=== PATIENT | female | born 1985 | race Caucasian/White ===

== ENCOUNTER 2022-03-03 04:02 | Emergency (ER) | payer BC ==
[2022-03-03] MEDS ORDERED: CLEOCIN 150 MG CAPSULE PO ONE (04:28)
--- NOTE | 2022-03-03 04:28 | ERPHSYRPT ---
- History of Present Illness Time Seen by Provider: 03/03/22 04:22 Source: patient Exam Limitations: no limitations Patient Subjective Stated Complaint: pt states "My widsom tooth broke the other day while I was eating and I have been having intense pain. I have been rotating tylenol and motrin and nothing is helping. The dentist cannot see me until saturday." Triage Nursing Assessment: Pt c/o L Lower tooth pain d/t widom tooth on L lower side breaking 2 days ago. Broken wisdom tooth noted on L lower side, no signs of drainage noted at this time. pt denies fever and is currently afebrile, pt is unable to sleep d/t pain from tooth Timing/Duration: gradual onset Severity: moderate ENT Location: dental Prearrival Treatment: over the counter meds Modifying Factors: Improves With: nothing Associated Symptoms: denies symptoms Allergies/Adverse Reactions: azithromycin Allergy (Verified 03/03/22 04:09) cephalexin [From Keflex] Allergy (Verified 03/03/22 04:09) nitrofurantoin [From Macrobid] Allergy (Verified 03/03/22 04:09) Sulfa (Sulfonamide Antibiotics) Allergy (Verified 03/03/22 04:09) sulfamethoxazole [From Bactrim] Allergy (Verified 03/03/22 04:09) trimethoprim [From Bactrim] Allergy (Verified 03/03/22 04:09) Hx Tetanus, Diphtheria Vaccination/Date Given: No Hx Influenza Vaccination/Date Given: Yes Hx Pneumococcal Vaccination/Date Given: No Immunizations Up to Date: Yes Travel Risk - International Travel Have you traveled outside of the country in past 3 weeks: No - Coronavirus Screening Are you exhibiting any of the following symptoms?: No Close contact with a COVID-19 positive Pt in past 14-21 Days: No - Vaccine Status Have you recieved a Covid-19 vaccination: Yes [employer] 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 [employer] - Review of Systems Constitutional: No Symptoms Eyes: No Symptoms Ears, Nose, & Throat: No Symptoms Respiratory: No Symptoms Cardiac: No Symptoms Abdominal/Gastrointestinal: No Symptoms Genitourinary Symptoms: No Symptoms Musculoskeletal: No Symptoms Skin: No Symptoms Neurological: No Symptoms Psychological: No Symptoms Endocrine: No Symptoms Hematologic/Lymphatic: No Symptoms Immunological/Allergic: No Symptoms All Other Systems: Reviewed and Negative - Past Medical History Pertinent Past Medical History: No Neurological History: No Pertinent History ENT History: No Pertinent History Cardiac History: No Pertinent History Respiratory History: No Pertinent History Endocrine Medical History: No Pertinent History Musculoskeletal History: No Pertinent History GI Medical History: No Pertinent History History: No Pertinent History Psycho-Social History: No Pertinent History Female Reproductive Disorders: No Pertinent History - Past Surgical History Past Surgical History: Yes Neuro Surgical History: No Pertinent History Cardiac: No Pertinent History Respiratory: No Pertinent History Gastrointestinal: Cholecystectomy Genitourinary: No Pertinent History Musculoskeletal: No Pertinent History Female Surgical History: Section - Social History Smoking Status: Never smoker Exposure to second hand smoke: No Drug Use: none Patient Lives Alone: No - Female History Hx Last Menstrual Period: 02/14/2022 Hx Now: No - Nursing Vital Signs Nursing Vital Signs: Initial Vital Signs Temperature 96.9 F 03/03/22 04:10 Pulse Rate 75 03/03/22 04:10 Respiratory Rate 18 03/03/22 04:10 Blood Pressure 117/83 03/03/22 04:10 O2 Sat by Pulse Oximetry 100 03/03/22 04:10 Pain Scale Pain Intensity 8 - Physical Exam General Appearance: mild distress Eye Exam: bilateral eye: normal inspection Ear Exam: bilateral ear: TM normal Nasal Exam: normal inspection Throat Exam: normal (molar tooth small fx, maybe early abscess) Neck Exam: normal inspection Cardiovascular/Respiratory Exam: chest non-tender, normal breath sounds Abdominal Exam: non-tender Neurologic Exam: alert, oriented x 3 Skin Exam: normal color SpO2 Interpretation: normal SpO2: 100 O2 Delivery: Room Air - Course Nursing assessment & vital signs reviewed: Yes Ordered Tests: Medication Summary Discontinued Medications Generic Name Dose Route Start Last Admin Trade Name Gail PRN Reason Stop Dose Admin Hydrocodone Bitart/Acetaminophen 1 tab 03/03/22 04:29 03/03/22 04:33 Hydrocodone/Apap 5/325 Mg Tablet PO 03/03/22 04:30 1 tab STAT ONE Administration Hydrocodone Bitart/Acetaminophen Confirm 03/03/22 04:33 Hydrocodone/Apap 5/325 Mg Tablet Administered 03/03/22 04:34 Dose 1 tab .ROUTE .STK-MED ONE Clindamycin HCl 150 mg 03/03/22 04:28 03/03/22 04:34 Clindamycin Hcl 150 Mg Capsule PO 03/03/22 04:29 150 mg STAT ONE Administration Clindamycin HCl Confirm 03/03/22 04:33 Clindamycin Hcl 150 Mg Capsule Administered 03/03/22 04:34 Dose 150 mg .ROUTE .STK-MED ONE - Progress Progress: improved Progress Note: 03/03/22 06:46 wisdom tooth, small fx, maybe early abscess, rx cleocin, few norco, see dds Counseled pt/family regarding: diagnosis, need for follow-up - Departure Departure Disposition: Home Clinical Impression: Dental abscess Condition: Stable Critical Care Time: No Referrals: THANIA GONZALEZ MD [Primary Care Provider] - Follow up/PCP as directed Instructions: Tooth Abscess (DC) Additional Instructions: OTC med as helpful pending dental appt. Prescriptions: Hydrocodone/Acetaminophen [Hydrocodone-Acetamin 5-325 mg] 1 tab PO Q6HPRN PRN #10 tablet MDD 4 PRN Reason: Pain clindamycin HCL [Cleocin HCl] 150 mg PO TID #30
[2022-03-03] MEDS ORDERED: NORCO 5/325 MG PO ONE (04:29)
[2022-03-03] MEDS ORDERED: CLEOCIN 150 MG CAPSULE ONE (04:33)
[2022-03-03] MEDS ORDERED: NORCO 5/325 MG ONE (04:33)
[2022-03-03 04:37] VITALS: BP 106/74; PULSE 71
[2022-03-03 06:47] VITALS: O2SAT 100
== END 2022-03-03 04:46 | disposition home or self-care (01) ==
LOC: ED 04:02
DX: K04.7 Periapical abscess without sinus (principal); Z79.891 Long term (current) use of opiate analgesic
CPT/HCPCS: 99283; A9270-GY

== ENCOUNTER 2024-09-27 17:55 | Emergency (ER) | payer SELFPAY ==
[2024-09-27 19:34] LABS: Absolute Neutrophil Ct (ANC) 5.91 x10^3/uL (1.56-6.13); BASOPHIL % 0.5 % (0.1-1.2); Basophil (Absolute #) 0.04 x10^3/uL (0.01-0.08); Eosinophil % 0.8 % (0.7-5.8); Eosinophil (Absolute #) 0.07 x10^3/uL (0.04-0.36); Hematocrit 28.7 % (34.1-44.9); Hemoglobin 8.7 g/dL (11.2-15.7); IMMATURE GRAN # 0.03 x10^3u/L (0.001-0.031); IMMATURE GRAN % 0.4 % (0.001-0.429); Lymphocyte (Absolute #) 1.97 x10^3/uL (1.18-3.74); Lymphocytes % 23.2 % (19.3-51.7); Mean Cell Volume 70.9 fL (79.4-94.8); Mean Corpuscular Hemoglobin 21.5 pg (25.6-32.2); Mean Corpuscular Hgb Concent. 30.3 g/dL (32.2-35.5); Mean Platelet Volume 9.7 fL (9.4-12.3); Monocyte (Absolute #) 0.48 x10^3/uL (0.24-0.86); Monocytes % 5.6 % (4.7-12.5); Neutrophil % 69.5 % (34.0-71.1); Platelet Count 300 x10^3/uL (182-369); Red Blood Count 4.05 x10^6/uL (3.93-5.22); Red Cell Distribution Width 16.7 % (11.7-14.4); White Blood Count 8.5 x10^3/uL (3.98-10.04)
--- NOTE | 2024-09-27 19:34 | ERPHSYRPT ---
- History of Present Illness Source: patient Exam Limitations: no limitations Patient Subjective Stated Complaint: - 13 weeks bleeding/cramping Triage Nursing Assessment: [id number] Physician History: About 24 hours prior to arrival the patient had a large gush of fluid from her vagina. She has not had much pain or discomfort. She does have some occasional cramping. Later on she did have some bright red blood per vagina. It has slo wed down. She called her SERVICE PLANNER and they told her to come in. She is at about 13 weeks. She has had multiple ultrasounds already with this . There has not been any abnormalities but it is a surrogate situation so I guess there are a lot of ultrasounds involved with that. Sexual intercourse history: non-contributory Modifying Factors: Improves With: nothing Associated Symptoms: denies symptoms Allergies/Adverse Reactions: azithromycin Allergy (Verified 09/27/24 18:44) cephalexin [From Keflex] Allergy (Verified 09/27/24 18:44) nitrofurantoin [From Macrobid] Allergy (Verified 09/27/24 18:44) Sulfa (Sulfonamide Antibiotics) Allergy (Verified 09/27/24 18:44) sulfamethoxazole [From Bactrim] Allergy (Verified 09/27/24 18:44) trimethoprim [From Bactrim] Allergy (Verified 09/27/24 18:44) Home Medications: Vit No.179/Iron/Folic [ Tablet] 1 tab PO DAILY 09/27/24 [History] Hx Tetanus, Diphtheria Vaccination/Date Given: No Hx Influenza Vaccination/Date Given: Yes Hx Pneumococcal Vaccination/Date Given: No Travel Risk - International Travel Have you traveled outside of the country in past 3 weeks: No - Emerging Infectious Disease Are you exhibiting symptoms associated with any current EIDs: No - Review of Systems Constitutional: No Symptoms Eyes: No Symptoms Ears, Nose, & Throat: No Symptoms Respiratory: No Symptoms Cardiac: No Symptoms Abdominal/Gastrointestinal: No Symptoms Musculoskeletal: No Symptoms - Past Medical History Pertinent Past Medical History: No Neurological History: No Pertinent History ENT History: No Pertinent History Cardiac History: No Pertinent History Respiratory History: No Pertinent History Endocrine Medical History: No Pertinent History Musculoskeletal History: No Pertinent History GI Medical History: No Pertinent History History: No Pertinent History Psycho-Social History: No Pertinent History Female Reproductive Disorders: No Pertinent History - Past Surgical History Past Surgical History: Yes Neuro Surgical History: No Pertinent History Cardiac: No Pertinent History Respiratory: No Pertinent History Gastrointestinal: Cholecystectomy Genitourinary: No Pertinent History Musculoskeletal: No Pertinent History Female Surgical History: Section - Female History Hx Last Menstrual Period: na Hx Now: Yes Gestational Age: 13 weeks - Social History Smoking Status: Never smoker Exposure to second hand smoke: No Drug Use: none Patient Lives Alone: No - Social Determinants of Health Will the patient participate in the screening: Yes Do you worry about a steady place to live?: No Do you have any problems with any of the following?: No known problems In the past 12 months,have you had to go without utilities?: No Transportation Issues: No Has anyone in your support network made you feel unsafe?: No Have you or anyone in your house had to go without enough: No - Nursing Vital Signs Nursing Vital Signs: Initial Vital Signs Temperature 97.5 F 09/27/24 18:45 Pulse Rate 87 09/27/24 18:45 Respiratory Rate 20 09/27/24 18:45 Blood Pressure 114/75 09/27/24 18:45 O2 Sat by Pulse Oximetry 100 09/27/24 18:45 Pain Scale Pain Intensity 2 - Physical Exam General Appearance: no apparent distress Eye Exam: PERRL/EOMI Ears, Nose, Throat Exam: normal ENT inspection Respiratory Exam: normal breath sounds Cardiovascular Exam: regular rate/rhythm Gastrointestinal/Abdomen Exam: soft Rectal Exam: not done Neurologic Exam: alert, oriented x 3 Skin Exam: normal color SpO2: 100 - Course Nursing assessment & vital signs reviewed: Yes Ordered Tests: Active Orders 24 hr Category Date Time Status OB <14 WKS 1ST GESTATION [US] Stat Exams 09/27/24 19:14 Taken AMNISURE RUPTURE OF MEMBRANES Stat Lab 09/27/24 21:05 Completed CBC W DIFF Stat Lab 09/27/24 19:25 Completed CMP Stat Lab 09/27/24 19:25 Completed CULTURE,URINE Stat Lab 09/27/24 21:00 Received HCG, Quantitative (Inhouse) Stat Lab 09/27/24 19:25 Completed UA W/RFX UR CULTURE Stat Lab 09/27/24 21:00 Completed Lab/Rad Data: Laboratory Result Diagrams 09/27/24 19:25 09/27/24 19:25 Laboratory Results 09/27/24 09/27/24 09/27/24 Range/Units 22:47 21:00 21:00 WBC (3.98-10.04) x10^3/uL RBC (3.93-5.22) x10^6/uL Hgb (11.2-15.7) g/dL Hct (34.1-44.9) % MCV (79.4-94.8) fL MCH (25.6-32.2) pg MCHC (32.2-35.5) g/dL RDW (11.7-14.4) % Plt Count (182-369) x10^3/uL MPV (9.4-12.3) fL Gran % (34.0-71.1) % Immature Gran % (Auto) (0.001-0.429) % Nucleat RBC Rel Count (0.00-0.2) % Eos # (Auto) (0.04-0.36) x10^3/uL Immature Gran # (Auto) (0.001-0.031) x10^3u/L Absolute Lymphs (auto) (1.18-3.74) x10^3/uL Absolute Monos (auto) (0.24-0.86) x10^3/uL Absolute Nucleated RBC (0.00-0.012) x10^3u/L Lymphocytes % (19.3-51.7) % Monocytes % (4.7-12.5) % Eosinophils % (0.7-5.8) % Basophils % (0.1-1.2) % Absolute Granulocytes (1.56-6.13) x10^3/uL Basophils # (0.01-0.08) x10^3/uL Sodium (135-145) mmol/L Potassium (3.5-5.1) mmol/L Chloride (98-107) mmol/L Carbon Dioxide (22-30) mmol/L Anion Gap (5-15) MEQ/L BUN (7-17) mg/dL Creatinine (0.52-1.04) mg/dL Estimated GFR ML/MIN Glucose (74-106) mg/dL Calcium (8.4-10.2) mg/dL Total Bilirubin (0.2-1.3) mg/dL AST (14-36) U/L ALT (0-35) U/L Alkaline Phosphatase (38-126) U/L Serum Total Protein (6.3-8.2) g/dL Albumin (3.5-5.0) g/dL Beta HCG, Quant mIU/ml Urine Color Yellow (Yellow) Urine Appearance Cloudy A (Clear) Urine pH 5.5 (4.6-8.0) Ur Specific [place] 1.025 (1.005-1.030) Urine Protein Trace A (Negative) Urine Glucose (UA) Negative (Negative) mg/dL Urine Ketones Trace A (Negative) Urine Blood Large A (Negative) Urine Nitrite Positive A (Negative) Urine Bilirubin Negative (Negative) Urine Urobilinogen 0.2 (0.2) mg/dL Ur Leukocyte Esterase Moderate A (Negative) U Hyaline Cast (Auto) NONE SEEN (0-2) /LPF Urine Microscopic RBC 11-20 A (0-5) /HPF Urine Microscopic WBC 51-100 A (0-5) /HPF Ur Epithelial Cells Moderate A (None Seen) /HPF Urine Bacteria Many A (None Seen) /HPF Urine Culture Reflexed YES (NO) Vaginal Diana Group NOT DETECTED (NEGATIVE) Diana species NOT DETECTED (NEGATIVE) Chlamydia DNA Probe NOT DETECTED (NEGATIVE) N.gonorrhoeae DNA Probe NOT DETECTED (NEGATIVE) T. vaginalis (PCR) NOT DETECTED (NEGATIVE) Bact vaginosis (PCR) NEGATIVE (NEGATIVE) 09/27/24 09/27/24 Range/Units 19:25 19:25 WBC 8.5 (3.98-10.04) x10^3/uL RBC 4.05 (3.93-5.22) x10^6/uL Hgb 8.7 L (11.2-15.7) g/dL Hct 28.7 L (34.1-44.9) % MCV 70.9 L (79.4-94.8) fL MCH 21.5 L (25.6-32.2) pg MCHC 30.3 L (32.2-35.5) g/dL RDW 16.7 H (11.7-14.4) % Plt Count 300 (182-369) x10^3/uL MPV 9.7 (9.4-12.3) fL Gran % 69.5 (34.0-71.1) % Immature Gran % (Auto) 0.4 (0.001-0.429) % Nucleat RBC Rel Count 0.0 (0.00-0.2) % Eos # (Auto) 0.07 (0.04-0.36) x10^3/uL Immature Gran # (Auto) 0.03 (0.001-0.031) x10^3u/L Absolute Lymphs (auto) 1.97 (1.18-3.74) x10^3/uL Absolute Monos (auto) 0.48 (0.24-0.86) x10^3/uL Absolute Nucleated RBC 0.00 (0.00-0.012) x10^3u/L Lymphocytes % 23.2 (19.3-51.7) % Monocytes % 5.6 (4.7-12.5) % Eosinophils % 0.8 (0.7-5.8) % Basophils % 0.5 (0.1-1.2) % Absolute Granulocytes 5.91 (1.56-6.13) x10^3/uL Basophils # 0.04 (0.01-0.08) x10^3/uL Sodium 134 L (135-145) mmol/L Potassium 3.4 L (3.5-5.1) mmol/L Chloride 107 (98-107) mmol/L Carbon Dioxide 20 L (22-30) mmol/L Anion Gap 10.5 (5-15) MEQ/L BUN 7 (7-17) mg/dL Creatinine 0.55 (0.52-1.04) mg/dL Estimated GFR 120.3 ML/MIN Glucose 81 (74-106) mg/dL Calcium 8.4 (8.4-10.2) mg/dL Total Bilirubin 0.20 (0.2-1.3) mg/dL AST 27 (14-36) U/L ALT 15 (0-35) U/L Alkaline Phosphatase 89 (38-126) U/L Serum Total Protein 6.8 (6.3-8.2) g/dL Albumin 3.5 (3.5-5.0) g/dL Beta HCG, Quant 556291 mIU/ml Urine Color (Yellow) Urine Appearance (Clear) Urine pH (4.6-8.0) Ur Specific [place] (1.005-1.030) Urine Protein (Negative) Urine Glucose (UA) (Negative) mg/dL Urine Ketones (Negative) Urine Blood (Negative) Urine Nitrite (Negative) Urine Bilirubin (Negative) Urine Urobilinogen (0.2) mg/dL Ur Leukocyte Esterase (Negative) U Hyaline Cast (Auto) (0-2) /LPF Urine Microscopic RBC (0-5) /HPF Urine Microscopic WBC (0-5) /HPF Ur Epithelial Cells (None Seen) /HPF Urine Bacteria (None Seen) /HPF Urine Culture Reflexed (NO) Vaginal Diana Group (NEGATIVE) Diana species (NEGATIVE) Chlamydia DNA Probe (NEGATIVE) N.gonorrhoeae DNA Probe (NEGATIVE) T. vaginalis (PCR) (NEGATIVE) Bact vaginosis (PCR) (NEGATIVE) - Progress Progress: unchanged Progress Note: Patient was stable throughout stay. Her ultrasound did not show any signs of a major placental rupture. I did a amniotic fluid test and it was positive. She was have some bleeding that could cause a false positive on that. I spoke with the on-call doctor. He suggested we get a wet mount and GC and chlamydia look for any signs or symptoms of infection.Patient has a urinary tract infection. She has multiple allergies to antibiotics. When questioned about Bactrim she said she just gets nauseated. I am going to give her some Bactrim and Zofran.All of her cultures came back negative. There is nothing further to treat. She is going to call her SERVICE PLANNER in the morning 09/27/24 22:25 09/28/24 00:28 Discussed with .: Other (dr jamil ) Counseled pt/family regarding: lab results, diagnosis, need for follow-up, negar pedraza Medical Desision Making - Discussion of managment Care discussed with:: specialist (Patient's SERVICE PLANNER on-call) Agreed on:: Treatment plan, need for follow-up - Diagnostic Testing Diagnostic test were ordered, analyzed, and reviewed by me: Yes - Risk of complications Minimal Risk: Minimal risk of morbidity - Departure Departure Disposition: Home Clinical Impression: First trimester bleeding, Urinary tract infection Condition: Stable Critical Care Time: No Referrals: THANIA GONZALEZ MD [Primary Care Provider] - Follow up/PCP as directed Instructions: Bleeding in Early (DC) Additional Instructions: Call your SERVICE PLANNER on Saturday for follow-up
[2024-09-27 20:05] LABS: ALBUMIN 3.5 g/dL (3.5-5.0); ANION GAP 10.5 MEQ/L (5-15); BILIRUBIN,TOTAL 0.2 mg/dL (0.2-1.3); Calcium 8.4 mg/dL (8.4-10.2); Creatinine 1 0.55 mg/dL (0.52-1.04); EST GLOMERULAR FILTRATION RATE 120.3 ML/MIN; Potassium 3.4 mmol/L (3.5-5.1); Total Protein 6.8 g/dL (6.3-8.2)
[2024-09-27 21:27] LABS: AMNISURE TEST RESULTS POSITIVE (NEGATIVE)
[2024-09-27 22:54] LABS: Appearance Cloudy (Clear); Bacteria Many /HPF (None Seen); Bilirubin Negative (Negative); Blood Large (Negative); Epithelial Cells Moderate /HPF (None Seen); Glucose, Urine Negative (Negative); Hyaline Casts NONE SEEN /LPF (0-2); Ketones Trace (Negative); Leukocyte Esterase Moderate (Negative); Nitrite Positive (Negative); Ph 5.5 (4.6-8.0); Protein,Urine Dip Trace (Negative); Specific Gravity 1.025 (1.005-1.030); Urobilinogen 0.2 mg/dL (0.2); WBC 51-100 /HPF (0-5)
[2024-09-27 23:31] VITALS: RESP 18
[2024-09-27 23:46] LABS: Candida Group NOT DETECTED (NEGATIVE); Candida glab/krus NOT DETECTED (NEGATIVE)
[2024-09-28] LABS: CHLAMYDIA DNA NOT DETECTED (NEGATIVE); GC DNA Probe NOT DETECTED (NEGATIVE)
[2024-09-28 00:31] VITALS: O2SAT 100
[2024-09-28 00:52] VITALS: BP 99/62; PULSE 80; TEMP 97.8
--- NOTE | 2024-09-28 08:46 | XRAY ---
Indication: Pelvic pain. Bleeding. Two-dimensional transabdominal early OB ultrasound performed. Comparison: None Single intrauterine with single pole. Mean crown-rump length is 7.42 cm corresponding to 13 weeks 4 days. heart rate 160 bpm. Small subchorionic hemorrhage measuring 3.3 x 3.1 x 0.9 cm. Cervical length is 3.3 cm. Impression: Single viable intrauterine measuring 13 weeks 4 days. Expected date of confinement is March 31, 2025. Small subchorionic hemorrhage. Comment: Preliminary report was given.
== END 2024-09-28 00:50 | disposition home or self-care (01) ==
LOC: ED 17:55
DX: O20.9 Hemorrhage in early pregnancy, unspecified (principal); Z3A.13 13 weeks gestation of pregnancy; O23.41 Unspecified infection of urinary tract in pregnancy, first trimester; N39.0 Urinary tract infection, site not specified
CPT/HCPCS: 36415; 76801; 80053; 81001; 84112; 84702; 85025; 87077; 87086; 87186; 87481; 87491; 87591; 87661; 87801; 99283; 99284